=== PATIENT | male | born 1985 | race African-American/Black ===

== ENCOUNTER 2024-11-06 16:10 | Emergency (ER) | payer OTHER ==
[~2024-11-06] VITALS: Ht 188 cm; Wt 127.0 kg
[2024-11-06 16:14] VITALS: TEMP 99.1; O2SAT 98
[2024-11-06 17:45] VITALS: BP 139/90; PULSE 102; RESP 18; O2SAT 98
== END 2024-11-06 18:24 ==
LOC: ER 16:10
DX: Z01.89 Encounter for other specified special examinations (principal)
CPT/HCPCS: 99283